=== PATIENT | female | born 2000 | race Caucasian/White ===

== ENCOUNTER 2023-11-07 13:20 | Emergency (ER) | payer SELFPAY | END 2023-11-07 13:54 | LOC: DL.ED 13:20 | DX: M25.561 Pain in right knee (principal); X50.0XXA Overexertion from strenuous movement or load, initial encounter; Y93.89 Activity, other specified; Y92.84 Military training ground as the place of occurrence of the external cause | CPT/HCPCS: 99282; 99283 ==